=== PATIENT | female | born 1980 | race American Indian/Alaskan Native ===

== ENCOUNTER 2017-02-19 08:57 | Emergency (ER) | payer MEDICAID ==
[2017-02-19 08:58] VITALS: BMI 52.0
[2017-02-19 09:12] VITALS: BP 117/63; PULSE 80; RESP 18; TEMP 99.5; O2SAT 100
--- NOTE | 2017-02-19 09:42 | ED PDOC ---
Arrival/HPI - General Historian: Patient - History of Present Illness Time/Duration: Other (3 days) Symptom Onset: Sudden Symptom Course: Unchanged Severity Level: 5 - General Chief Complaint: Fever Time Seen by Provider: 02/19/17 09:00 - History of Present Illness Narrative History of Present Illness (Text): 02/19/17 09:38 36F w/no sig PMH evaluated for sore throat x 3 days. Pt reports sudden onset on Sunday with hoarse voice, Tmax 101.1 at home, stuffy nose, mouth lesions, poor appetite, headache, myalgias. States Motrin helps. Denies chest pain, ab pain, SOB, changes in vision, other complaints. PMH: Denies PSH: appendectomy All: Denies SH: works at [employer] with current Coxsackie outbreak, denies tobacco, ETOH, illicit drugs PMD: [facility] [address] 02/19/17 09:44 (Shirlene Tilley) Associated Symptoms (Text): 02/19/17 09:43 nausea, emesis, fevers, chills, neck soreness (Shirlene Tilley) Past Medical History - Provider Review Nursing Documentation Reviewed: Yes - Past History Past History: No Previous - Infectious Disease Hx of Infectious Diseases: None - Reproductive Menopause: No - Past Medical History Past Medical History: No Previous - Psychiatric Hx Depression: No Hx Emotional Abuse: No Hx Physical Abuse: No Hx Substance Use: No - Surgical History Hx Appendectomy: Yes - Suicidal Assessment Feels Threatened In Home Enviroment: No Family/Social History - Physician Review Nursing Documentation Reviewed: Yes Family/Social History: No Known Family HX Smoking Status: Never Smoked Hx Alcohol Use: No Hx Substance Use: No Hx Substance Use Treatment: No Allergies/Home Meds Allergies/Adverse Reactions: Allergies No Known Allergies Allergy (Verified 02/19/17 09:11) Home Medications: Home Meds Medication Instructions Recorded Confirmed B-Control 02/19/17 Review of Systems - Physician Review All systems were reviewed & negative as marked: Yes - Review of Systems Constitutional: Fatigue, Fevers Eyes: Normal. absent: Vision Changes, Eye Pain ENT: Voice Changes (hoarse), Sore Throat, Sinus Congestion Respiratory: Normal Cardiovascular: Normal. absent: Chest Pain Gastrointestinal: Appetite Changes. absent: Constipation, Hematochezia, Hematemesis Musculoskeletal: Myalgias Skin: Normal Neurological: Headache Physical Exam Vital Signs Reviewed: Yes Temperature: Afebrile Blood Pressure: Normal Pulse: Regular Respiratory Rate: Normal Appearance: Positive for: Non-Toxic, Comfortable Pain Distress: None Mental Status: Positive for: Alert and Oriented X 3 - Systems Exam Head: Present: Atraumatic, Normocephalic Pupils: Present: PERRL Extroacular Muscles: Present: EOMI Conjunctiva: Present: Normal Mouth: Present: Moist Mucous Membranes. No: Drooling, Trismus Pharnyx: Present: ERYTHEMA (slight), Other (garza lesions in oropharynx, small ulceration on interior aspect of lower lip- tender to palpation). No: EXUDATE, TONSILS ENLARGED, Peritonsilar Swelling, Uvular Deviation, Strider, Soft Palate/ Uvular Edema Nose (External): Present: Atraumatic Neck: Present: Other (tender over lateral aspect, negative tenderness when hyoid bone manipulated) Respiratory/Chest: Present: Clear to Auscultation, Good Air Exchange. No: Respiratory Distress, Accessory Muscle Use Cardiovascular: Present: Regular Rate and Rhythm, Normal S1, S2. No: Murmurs Abdomen: Present: Normal Bowel Sounds. No: Tenderness, Distention, Peritoneal Signs Upper Extremity: Present: Normal Inspection. No: Cyanosis, Edema Lower Extremity: Present: Normal Inspection. No: Edema Neurological: Present: GCS=15, CN II-XII Intact, Speech Normal Skin: Present: Warm, Dry, Normal Color. No: Rashes Lymphatic: No: Cervical Adenopathy Psychiatric: Present: Alert, Oriented x 3, Normal Insight, Normal Concentration Vital Signs Temp Pulse Resp BP Pulse Ox 02/19/17 09:08 99.5 F 80 18 117/63 100 Medical Decision Making ED Course and Treatment: 02/19/17 10:04 Pt with viral symptoms, hemodynamically stable, afebrile (Shirlene Tilley) 02/19/17 10:06 Patient seen and examined with resident Came up with treatment and disposition plan with resident pt with mouth lesions, sore throat, works at day care with coxsackie outbreak. afebrile in no distress. no tristhmus. No pain with hyoid manipulation instructed to f/u with PMD in 1-2 days and to return to the ER for new or worsening symptoms pt states she feels comfortable being dc'd home at this time (Seth Saldaña) Disposition/Present on Arrival - Present on Arrival Any Indicators Present on Arrival: No History of DVT/PE: No History of Uncontrolled Diabetes: No Urinary Catheter: No History of Decub. Ulcer: No History Surgical Site Infection Following: None - Disposition Have Diagnosis and Disposition been Completed?: Yes Disposition Time: 09:48 Patient Plan: Discharge - Disposition Diagnosis: Sore throat (viral) Disposition: HOME/ ROUTINE Condition: STABLE Discharge Instructions (ExitCare): Pharyngitis (ED) Additional Instructions: Motrin for painl/fevers, rest, hydration. Please return to hospital for worsening symptoms. Referrals: PCP,NO [Primary Care Provider] - Follow up with primary Jose Woodard MD [Staff Provider] - Follow up with primary Forms: [facility] (Greek), WORK NOTE
== END 2017-02-19 10:01 | disposition home or self-care (01) ==
LOC: ED 08:57
DX: J02.8 Acute pharyngitis due to other specified organisms (principal)